=== PATIENT | female | born 1980 | race Caucasian/White ===

== ENCOUNTER 2019-07-22 08:07 | Outpatient (CLI) | payer OTHER ==
--- NOTE | 2019-07-22 09:42 | RAD ---
EXAM: Upper GI HISTORY: Epigastric abdominal pain. History of cholecystectomy. COMPARISON: None EXPOSURE: 2.4 minutes; 92.56 Gy per centimeter squared FINDINGS: A double contrast upper GI was performed. Cholecystectomy clips are seen in the right upper quadrant of the abdomen. Esophageal motility is normal. No mucosal lesions are seen in the esophagus. No extrinsic compression on the esophagus is seen. No hiatal hernia. Mild gastroesophageal reflux to the level of the distal thoracic esophagus. The stomach is normal in size without mucosal abnormality or extrinsic compression. The contrast passes through the stomach into the duodenum without difficulty. The duodenum is normal in appearance without focal abnormality. IMPRESSION: Mild gastroesophageal reflux disease
== END 2019-07-22 08:08 | disposition home or self-care (01) ==
LOC: RAD 08:07
PROVIDERS: ATTEND Internal Medicine Gastroenterology
DX: K80.20 Calculus of gallbladder without cholecystitis without obstruction (principal); R10.13 Epigastric pain; K21.9 Gastro-esophageal reflux disease without esophagitis
CPT/HCPCS: 74247

== ENCOUNTER 2020-07-10 08:16 | Outpatient (CLI) | payer BC, OTHER ==
--- NOTE | 2020-07-10 09:51 | ULT ---
RIGHT BREAST ULTRASOUND: Date: 07/10/2020 HISTORY: Abnormal mammogram of 06/29/2020 from [facility] in [place], [place]. FINDINGS: Correlation made with mammogram of 06/29/2020. Sonographic evaluation of the retroareolar region of the right breast demonstrates an 8.0 x 8.0 x 5.0 mm well-circumscribed, hypoechoic, nonshadowing solid nodule, likely representing a fibroadenoma. IMPRESSION: BI-RADS Category 3 - Probably benign findings. A 6 month follow-up right diagnostic mammogram and rig ht breast ultrasound are recommended. The facility will notify patient of need for additional imaging services. POS: OFF
== END 2020-07-10 08:17 | disposition home or self-care (01) ==
LOC: BICULT 08:16
PROVIDERS: ATTEND Obstetrics & Gynecology
DX: R92.2 Inconclusive mammogram (principal)

== ENCOUNTER 2021-01-29 09:15 | Outpatient (CLI) | payer BC | END 2021-01-29 09:16 | disposition home or self-care (01) | LOC: BICMAMMO 09:15 | PROVIDERS: ATTEND Obstetrics & Gynecology | DX: R92.2 Inconclusive mammogram (principal); M46.1 Sacroiliitis, not elsewhere classified; M54.5 Low back pain | CPT/HCPCS: 72100; 72202; G0279 ==

== ENCOUNTER 2021-09-02 14:42 | Outpatient (CLI) | payer BC | END 2021-09-02 14:43 | disposition home or self-care (01) | LOC: BICMAMMO 14:42 | PROVIDERS: ATTEND Obstetrics & Gynecology | DX: R92.8 Other abnormal and inconclusive findings on diagnostic imaging of breast (principal) | CPT/HCPCS: 77066; G0279 ==

== ENCOUNTER 2025-08-14 10:14 | Outpatient (CLI) | payer BC | END 2025-08-14 10:15 | disposition home or self-care (01) | LOC: SCSRAD 10:14 | PROVIDERS: ATTEND Orthopaedic Surgery | DX: M54.50 Low back pain, unspecified (principal); Z98.890 Other specified postprocedural states | CPT/HCPCS: 72100 ==